=== PATIENT | female | born 1960 | race Caucasian/White ===

== ENCOUNTER 2024-01-11 11:38 | Inpatient (IN) ==
[~2024-01-11 11:38] MED LIST: Midazolam 2 mg/2 ml VIAL 1 mg/ml 2 ml VIAL (2 mg) ONE
[2024-01-11] MEDS ORDERED: Dexamethasone IV 4 MG/ML VIAL 1 ml VIAL ONE (11:39)
[2024-01-11] MEDS ORDERED: fentaNYL 250 mcg/5 ml 50 MCG/ML 5 ml VIAL (250 MCG) ONE (11:43)
[2024-01-11] MEDS ORDERED: Lidocaine 2% PF 5 ML VIAL ONE (11:43)
[2024-01-11] MEDS ORDERED: Ondansetron 4 mg VIAL 2 MG/ML 2 ml VIAL ONE (11:44)
[2024-01-11] MEDS ORDERED: ceFAZolin 2 GM PREMIX 2 GM/50 ML BAG ONE (12:14)
[2024-01-11] MEDS ORDERED: Famotidine IV 10 MG/ML 2 ml VIAL (20 mg) ONE (12:15)
[2024-01-11] MEDS: Famotidine IV 10 MG/ML 2 ml VIAL (20 mg) IV ONE (12:36)
[2024-01-11 12:43] LABS: Rapid COVID-19 Molecular Undetected (Undetected)
[2024-01-11] MEDS ORDERED: fentaNYL 100 mcg/2 ml 50 MCG/ML VIAL ONE ×4 (13:26→17:35)
[2024-01-11] MEDS ORDERED: Midazolam 2 mg/2 ml VIAL 1 mg/ml 2 ml VIAL (2 mg) ONE (13:26)
[2024-01-11] MEDS ORDERED: ROPIVACAINE 5 MG/ML 30 ML BTL (0.5%) ONE ×4 (13:31→13:59)
[2024-01-11] MEDS ORDERED: Rocuronium 50 mg VIAL 10 mg/ml 5 ml VIAL (50 mg) ONE ×2 (14:22→14:57)
[2024-01-11] MEDS ORDERED: ceFAZolin VIAL VIAL ONE (14:39)
[2024-01-11] MEDS ORDERED: Calcium Carb (TUMS) 500 mg CHEW TAB PO PRN (15:16)
[2024-01-11] MEDS ORDERED: Morphine 2 MG/ML SYRINGE IV PRN (15:16)
[2024-01-11] MEDS ORDERED: Magnesium Hydroxide LIQ 30 ML UDC PO PRN (15:16)
[2024-01-11] MEDS ORDERED: Ondansetron 4 mg VIAL 2 MG/ML 2 ml VIAL IV PRN (15:16)
[2024-01-11] MEDS ORDERED: Lactulose 30 ml UDC PO PRN (15:16)
[2024-01-11] MEDS ORDERED: Ondansetron ODT 4 mg TAB 4 MG TAB PO PRN (15:16)
[2024-01-11] MEDS ORDERED: Naloxone 0.4 mg VIAL 0.4 mg/ml 1 ml VIAL IV PRN (15:27)
[2024-01-11] MEDS ORDERED: Morphine 4 MG/ML VIAL (1 ml) IV PRN (15:27)
[2024-01-11] MEDS: fentaNYL 100 mcg/2 ml 50 MCG/ML VIAL IV PRN (17:11)
[2024-01-11] MEDS: Buffered Lidocaine 1% SYRIN 1 ml INTRADERM ONE (17:30)
[2024-01-11] MEDS: Lactated Ringers 1000 ml BAG 1,000 ML IV SCH ×2 (17:30→18:25)
[2024-01-11] MEDS ORDERED: Albuterol HFA INHALER 8 gm MDI INH PRN (17:58)
[2024-01-11] MEDS: Clindamycin 900 MG/D5W BAG 900 MG/50 ML BAG IVPB SCH ×2 (18:24→23:36)
[2024-01-11] MEDS ORDERED: Dextrose 50% Syringe 50 ml 25 GM/50 ML SYRINGE IV PUSH PRN (18:38)
[2024-01-11] MEDS: Magnesium Hydroxide LIQ 30 ML UDC PO SCH (21:19)
[2024-01-12 05:39] LABS: Hematocrit 30.6 % (35-45); Hemoglobin 10.8 g/dL (11.5-14.3); Mean Platelet Volume 6.4 fL (7.5-11.2); Platelet Count 312 10^3/uL (150-450)
[2024-01-12 06:29] LABS: Calcium 8.4 mg/dL (8.6-10.3); Creatinine, Serum 0.69 mg/dL (0.51-0.95); Potassium 4.2 mmol/L (3.5-5.0); eGFR CKD-EPI 97.5 (>60)
[2024-01-12] MEDS: Vitamin THERAPEUTIC TAB PO SCH (08:29)
[2024-01-12] MEDS: BROMFENAC 0.09% RIGHT EYE SCH (08:37)
[2024-01-12 14:32] VITALS: BP 122/61
== END 2024-01-12 17:40 | disposition home or self-care (01) | DRG 302 ==
LOC: AA 11:38 → INTOOBSV 11:38 → SSU 18:12
PROVIDERS: ADMIT Orthopaedic Surgery Adult Reconstructive Orthopaedic Surgery; ATTEND Orthopaedic Surgery Adult Reconstructive Orthopaedic Surgery